=== PATIENT | female | born 1945 | race Caucasian/White ===

== ENCOUNTER 2018-12-26 07:42 | Day surgery (SDC) | payer OTHER ==
[~2018-12-26] VITALS: Ht 162.6 cm; Wt 88.5 kg
[~2018-12-26 07:42] MED LIST: ASPI-404 PO; LOSA100T25 PO; METF-370 PO; OXYB5TAB61 PO; RANI150C11 PO; SIMV-13 PO
[2018-12-26] MEDS ORDERED: LIDOCAINE 2%HCL (LOCAL ANESTH.) INJ 20ML MDV ONE ×2 (07:59→09:30)
[2018-12-26] MEDS ORDERED: HEPARIN IN NS 1000Units/500mL 1,500 ML ONE (07:59)
[2018-12-26] MEDS ORDERED: IOHEXOL 350 MG/ML 100ML IJ ONE ×2 (08:00→08:08)
[2018-12-26] MEDS ORDERED: ANGIOMAX 250 MG VIAL IV ONE (08:11)
[2018-12-26] MEDS ORDERED: MIDAZOLAM HCL 1MG/1ML-2 ML VIAL ONE (08:12)
[2018-12-26] MEDS ORDERED: fentaNYL CITRATE 100 MCG/2 ML VL ONE (08:12)
[2018-12-26] MEDS ORDERED: SODIUM CHL 0.9% 0 ML ONE (08:12)
[2018-12-26] MEDS ORDERED: IODIXANOL 320MG/ML 100ML BTL IV ONE (09:38)
== END 2018-12-26 12:50 | disposition home or self-care (01) ==
LOC: CATH 07:42
PROVIDERS: ATTEND Internal Medicine Cardiovascular Disease
DX: I25.110 Atherosclerotic heart disease of native coronary artery with unstable angina pectoris (principal); I34.1 Nonrheumatic mitral (valve) prolapse; I10 Essential (primary) hypertension; E78.5 Hyperlipidemia, unspecified; G47.00 Insomnia, unspecified; E66.9 Obesity, unspecified; E11.69 Type 2 diabetes mellitus with other specified complication; F17.210 Nicotine dependence, cigarettes, uncomplicated; Z79.82 Long term (current) use of aspirin; Z79.84 Long term (current) use of oral hypoglycemic drugs; Z79.899 Other long term (current) drug therapy; Z68.33 Body mass index [BMI] 33.0-33.9, adult
CPT/HCPCS: 93460; C1751; C1760; C1894; J1644; J2250; J3010; J7030; Q9967; 99152; 99153